=== PATIENT | female | born 1970 | race Two or more races ===

== ENCOUNTER → 2023-07-22 | Outpatient (CLI) | payer MEDICAID ==
[~2023-07-22] MED LIST: APIX5TAB PO; BENA10TA16 PO; BUPR-239 PO; CITA-73 PO; DULO60CA41 PO; FAMO-68 PO; FURO40TA4 PO; GABA-339 PO; HYDR50CA2 PO; LEVO500T91 PO; MECL1TAB31 PO; METF-372 PO; MICO2CRE88 EX; MYC15TP TOP; OXYB5TAB10 PO; PIOG1TAB51 OR; PRAV20TA3 PO; PROP60CA34 PO; SITA100T7 PO; TRAM50TA2 PO; TRIA0.1C4 EX; VERA120T92 PO
[2023-07-22 08:19] LABS: Urine Bacteria NONE SEEN /hpf (None Seen); Urine Blood Negative /uL (Negative); Urine Clarity Clear (Clear); Urine Color Colorless (Yellow); Urine Protein, UAD Negative (Negative); Urine Specific Gravity 1.007 (1.001-1.035); Urine Urobilinogen Normal (Negative); Urine WBC 1 /hpf (0 - 5); Urine pH 5.5 (5.0-8.0)
== END | disposition home or self-care (01) ==
LOC: LAB 07:12
PROVIDERS: ATTEND Urology
DX: R30.0 Dysuria (principal)
CPT/HCPCS: 81001; 87086

== ENCOUNTER 2024-01-09 06:59 | Day surgery (SDC) | payer MEDICAID ==
[2024-01-07 12:02] LABS: Urine Bacteria None Seen /hpf (None Seen)
[2024-01-07 12:08] LABS: Basophils # (auto) 0 10 ^3/uL (0-0.2); Basophils % (auto) 0.4 % (0.0-2.0); Eosinophils # (auto) 0 10 ^3/uL (0-0.8); Eosinophils % (auto) 0.3 % (0.0-7.0); Hematocrit 40.4 % (36.0-46.0); Hemoglobin 13.5 g/dL (12.2-16.2); Lymphocytes # (auto) 1.3 10 ^3/uL (0.4-5.4); Lymphocytes % (auto) 27.2 % (10.0-50.0); Mean Corpuscular Hemoglobin 30.7 pg (28.0-32.0); Mean Corpuscular Hgb Conc. 33.4 g/dL (32.0-36.0); Mean Corpuscular Volume 91.8 fL (80.0-100.0); Monocytes # (auto) 0.4 10 ^3/uL (0-1.3); Neutrophils % (auto) 63.1 % (37.0-80.0); Nucleated Red Blood Cells % 0.1 %; Red Cell Distribution Width 13.3 % (11.8-14.3); White Blood Cell 4.8 10^3/uL (4.4-10.8)
[2024-01-07 12:14] LABS: Urine Blood Negative /uL (Negative); Urine Clarity Clear (Clear); Urine Color Colorless (Yellow); Urine Protein, UAD Negative (Negative); Urine Specific Gravity 1.004 (1.001-1.035); Urine Urobilinogen Normal (Negative); Urine WBC <1 /hpf (0 - 5)
[2024-01-07 12:23] LABS: INR 1.09 (0.9-1.15); Partial Thromboplastin Time 28.7 SEC (24.5-34.5); Prothrombin Time 11.5 sec (9.3-11.8)
[2024-01-07 12:29] LABS: Alanine Aminotransferase 21 U/L (7-40); Albumin 4.7 g/dL (3.2-4.8); Alkaline Phosphatase 79 U/L (46-116); Anion Gap 7 (5-15); Aspartate Aminotransferase 12 U/L (13-40); BUN/Creatinine Ratio 14.3 (10.0-20.0); Bilirubin, Total 0.7 mg/dL (0.2-1.0); Blood Urea Nitrogen 14 mg/dL (9-23); Calcium 10.3 mg/dL (8.7-10.4); Carbon Dioxide 30 mmol/L (20-30); Chloride 102 mmol/L (98-107); Glucose 178 mg/dL (74-106); Potassium 3.6 mmol/L (3.5-5.1); Sodium 139 mmol/L (136-145); Total Protein 7.6 g/dL (5.7-8.2)
[~2024-01-09] VITALS: Ht 144.8 cm; Wt 103.9 kg
[~2024-01-09 06:59] MED LIST changes: +DULO1CAP6 PO; -DULO60CA41 PO; -LEVO500T91 PO; +MECL12.586 PO; -MECL1TAB31 PO; -MICO2CRE88 EX; -MYC15TP TOP; -OXYB5TAB10 PO; +OXYB5TAB14 PO; +POTA8TAB38 PO; -TRIA0.1C4 EX; -VERA120T92 PO
[2024-01-09] MEDS ORDERED: PROPOFOL 10 MG/ML 20 ML IV ONE (08:46)
[2024-01-09 09:02] VITALS: RESP 17; TEMP 97.4; O2SAT 100
[2024-01-09 09:20] VITALS: BP 115/61; PULSE 67; RESP 14; O2SAT 97
== END 2024-01-09 09:40 | disposition home or self-care (01) ==
LOC: GI 06:59
PROVIDERS: ATTEND Internal Medicine Gastroenterology
DX: Z12.11 Encounter for screening for malignant neoplasm of colon (principal); K57.30 Diverticulosis of large intestine without perforation or abscess without bleeding; K21.9 Gastro-esophageal reflux disease without esophagitis; I10 Essential (primary) hypertension; E78.5 Hyperlipidemia, unspecified; E66.01 Morbid (severe) obesity due to excess calories; Z68.43 Body mass index [BMI] 50.0-59.9, adult; Z79.899 Other long term (current) drug therapy
CPT/HCPCS: 36415; 45378; 80053; 81001; 82962; 85025; 85610; 85730; J2704; J7030

== ENCOUNTER 2024-12-22 10:08 | Day surgery (SDC) | payer MEDICAID ==
[2024-12-21 10:17] LABS: Hematocrit 33.6 % (36.0-46.0); Hemoglobin 11.4 g/dL (12.2-16.2); Mean Corpuscular Hemoglobin 31.6 pg (28.0-32.0); Mean Corpuscular Volume 93.4 fL (80.0-100.0); Nucleated Red Blood Cells % 0.1 %
[2024-12-21 10:29] LABS: Urine Protein, UAD Negative (Negative)
[2024-12-21 10:34] LABS: INR 1.09 (0.9-1.15); Partial Thromboplastin Time 26.6 SEC (24.5-34.5); Prothrombin Time 11.5 sec (9.3-11.8)
[2024-12-21 10:44] LABS: Alkaline Phosphatase 77 U/L (46-116); Anion Gap 9 (5-15); BUN/Creatinine Ratio 24.7 (10.0-20.0); Bilirubin, Total 0.7 mg/dL (0.2-1.0); Blood Urea Nitrogen 19 mg/dL (9-23); Calcium 9.7 mg/dL (8.7-10.4); Carbon Dioxide 27 mmol/L (20-31); Glucose 99 mg/dL (74-106); Potassium 3.9 mmol/L (3.5-5.1); Sodium 145 mmol/L (136-145); Total Protein 6.2 g/dL (5.7-8.2)
[2024-12-21 10:45] LABS: Alanine Aminotransferase 77 U/L (7-40); Chloride 109 mmol/L (98-107)
[2024-12-21 10:53] LABS: Albumin 3.9 g/dL (3.2-4.8)
[~2024-12-22] VITALS: Ht 144.8 cm; Wt 70.3 kg
[2024-12-22] MEDS ORDERED: PHENYLEPHRINE HCL 10 MG/ML VL IV ONE (10:09)
[2024-12-22] MEDS ORDERED: CIPROFLOXACIN 400MG/200ML 200 ML IV ONE (11:43)
[2024-12-22] MEDS ORDERED: MIDAZOLAM HCL 2MG/2ML 2ml VIAL (1mg/ml) ONE (12:04)
[2024-12-22] MEDS ORDERED: fentaNYL CITRATE 100 MCG/2 ML VL ONE (12:04)
[2024-12-22] MEDS ORDERED: HYDROmorphone HCL 2 MG/ML VL/or syr ONE (12:04)
[2024-12-22] MEDS ORDERED: PROPOFOL 10 MG/ML 20 ML IV ONE (12:06)
--- NOTE | 2024-12-22 12:32 | DVHNC2 ---
Procedure - OPERATIVE REPORT Pre-op. Diagnosis: Refractory urinary urgency, frequency and urge incontinence Overflow incontinence Bladder outlet obstruction Post-op. Diagnosis: Same as pre-op diagnosis Operation: InterStim Implantation with Fluoroscopy (33288, 13841, 03150-00) Electric Analysis of NPG (47272) Anesthesia: Local + IV general Indications: Patient has severe urgency, frequency and mixed urinary incontinence refractory to multiple anticholinergic medications as well as the beta-3 adrenergic agonist. Previous InterStim PNE trial was successful and she wants to proceed with full implantation. This was discussed in detail with the patient, who is aware of the risks of the procedure including bleeding, infection, need for explantation and failure of the technology to work. . Details of Procedure: The patient was brought to the operating room and sedated in the prone position. After general anesthesia was administered, proper prone position is accomplished to avoid any pressure points. Next the buttocks are exposed with the lower back prepped and draped in the normal sterile fashion. Fluoroscopy was used to salvador the midline of the sacrum, along with the sacroiliac junction and a salvador was made 2.0 cm lateral and 2.0 cm superior to the cross hair point. Local anesthetic is applied in the general area. The foramen needle is used to access the third sacral foramin with demonstration of toe flexion and Bellow's response upon proper stimulations. The wire stylette was inserted through the foramin needle and the introducing sheeth is passed over the wire stylette after a small puncture is made on the skin entrance. Under fluoroscopic guidance, the permanent Tined lead was inserted and positioned appropriately. Neurological responses were noted appropriately with stimulation on the 4 electrodes. The introducing sheath is removed while securing the Tined lead in position. A large 4-6 cm subcutaneous pocket was then created in the right buttock area approximately 1 inch in depth. The extension lead was then connected to the pulse generator via standard protocol. The generator is placed in the subcutaneous pocket and impedence testing (Electric analysis) is performed with appropriate responses obtained. The wound is closed in 3 layers with final skin closure using carito Proper dressing was applied. Patient tolerated the procedure well. All instrument counts, needle counts and sponge counts were correct. And, patient is taken to in stable condition. Specimens: Complications: None Findings: Fluoroscopy utilized throughout the case. EBL: Minimal Notes: Follow up as outpatient after discharge in 2 weeks. Diagnosis: Visit Code: Procedure Codes: 75984 INCISION FOR IMPNT NEUROSTIM. 43422 INTERSTIM INSER OR REPLCMENT. Modifiers: [id number] FLUROSCOPY UPTO 1HR PHYS TIME. 75507 INTERSTIM ELECTRONIC ANALYSIS. DAVID TURNER MD Dec 22, 2024 12:32
--- NOTE | 2024-12-22 12:33 | DVHDS2 ---
New Physician D'charge PN Admitting Diagnosis Admitting Diagnosis Overactive bladder Voiding dysfunction Bladder outlet obstruction Discharge Diagnosis Same Operations or Procedures InterStim implantation Reason(s) For Hospitalization Surgery Treatment Plan Discharge Condition of Discharge Good Disposition Home Discharge Instructions Diet: Regular Activity: Light activity Activity comment: As tolerated Medications: Given Follow Up Care Follow Up/Referral: Staple removal in two weeks Discharge Statement: "Patient was advised to return to the ER or call 911 if any headaches, dizziness, shortness of breath, chest pain, abdominal pain, bleeding, fevers, or worsening of medical condition. Patient was counseled about treatment plan, medications, possible side effects, patientverbalized understanding. All questions were answered to the best of my ability. This discharge took greater then 30 minutes in planning, reviewing documentation, counseling the patient, and discussing with other team members." DAVID TURNER MD Dec 22, 2024 12:33
[2024-12-22] MEDS ORDERED: SUCCINYLCHOLINE CHLORIDE 20 MG/ML 10ML VIAL IV ONE (12:53)
[2024-12-22] MEDS: LIDOCAINE 1% HCL (LOCAL ANESTH.) INJ 20ML MDV ONE (13:40)
[2024-12-22] MEDS ORDERED: SUGAMMADEX 200mg/2ml Vial (100MG/ML) IV ONE (13:59)
[2024-12-22] MEDS ORDERED: ONDANSETRON HCL 4 MG/2 ML VIAL ONE (13:59)
[2024-12-22] MEDS: VANCOMYCIN HCL 1000 MG VL ONE (14:20)
[2024-12-22 14:35] VITALS: PULSE 69; RESP 12; TEMP 97.8; O2SAT 100
[2024-12-22] MEDS ORDERED: HYDROmorphone HCL 2 MG/ML VL/or syr IV PRN (15:15)
[2024-12-22] MEDS ORDERED: MIDAZOLAM HCL 2MG/2ML 2ml VIAL (1mg/ml) IV PRN (15:15)
[2024-12-22] MEDS ORDERED: ONDANSETRON HCL 4 MG/2 ML VIAL IV ONE (15:15)
[2024-12-22] MEDS ORDERED: MORPHINE SULFATE 4 MG/ML SYR/VIAL IV PRN (15:15)
[2024-12-22] MEDS ORDERED: hydrALAZINE HCL 20 MG/ML VL IV PRN (15:15)
--- NOTE | 2024-12-22 15:17 | DVH ---
C-ARM FLUOROSCOPY: PROCEDURE: Implant FLUOROSCOPY TIME: 96.8 DAP: 25.8 mgy FINDINGS: Spot intraoperative C arm radiographs demonstrating interstim implant. IMPRESSION: Please refer to surgical report for detailed findings.
[2024-12-22 16:30] VITALS: BP 123/85; PULSE 75; RESP 16; O2SAT 98
== END 2024-12-22 14:35 | disposition home or self-care (01) ==
LOC: SUR 10:08
PROVIDERS: ATTEND Urology
DX: N39.490 Overflow incontinence (principal); N39.41 Urge incontinence; N32.81 Overactive bladder; N32.0 Bladder-neck obstruction; I10 Essential (primary) hypertension; E11.9 Type 2 diabetes mellitus without complications; K21.9 Gastro-esophageal reflux disease without esophagitis; M19.90 Unspecified osteoarthritis, unspecified site; F41.9 Anxiety disorder, unspecified; Z79.899 Other long term (current) drug therapy; Z98.84 Bariatric surgery status
CPT/HCPCS: 36415; 64561; 64590; 74018; 80053; 81001; 82962; 85025; 85610; 85730; 87086; 87088; 87186; C1767; C1778; C1787; J0330; J0744; J1100; J1171; J2003; J2250; J2371; J2405; J2704; J3010; J3370; 76000